=== PATIENT | female | born 1980 | race Caucasian/White ===

== ENCOUNTER 2021-02-22 07:38 | Emergency (ER) | payer BC ==
[2021-02-22] MEDS ORDERED: Ketorolac Tromethamine 30 MG/ML VIAL ONE (07:54)
[2021-02-22] MEDS ORDERED: Ondansetron ODT 4 MG TAB ONE (07:54)
[2021-02-22 15:48] LABS: SARS-CoV-2 PCR by NAA DETECTED (NotDetected)
== END 2021-02-22 10:03 | disposition home or self-care (01) ==
LOC: ERS 07:38
DX: U07.1 COVID-19 (principal)
CPT/HCPCS: 96372; 99284; J1885; Q0162; U0003; U0005

== ENCOUNTER 2023-04-19 02:03 | Emergency (ER) | payer BC, SELFPAY ==
[2023-04-19] MEDS ORDERED: Diazepam 5 MG TAB ONE (02:20)
== END 2023-04-19 03:07 | disposition home or self-care (01) ==
LOC: ERS 02:03
DX: M62.838 Other muscle spasm (principal)
CPT/HCPCS: 99283